=== PATIENT | female | born 1980 ===

== ENCOUNTER 2018-08-31 03:34 | Inpatient (IN) | payer MEDICAID ==
[2018-08-31] MEDS: ONDANSETRON 4 MG INJ IV (06:40)
[2018-08-31] MEDS: SOD CHLORIDE 0.9% 1,000 ML IV (06:40)
[2018-08-31] MEDS: morphine 4 MG/ML VIAL IV (06:40)
[2018-08-31 06:46] LABS: ADD MAN DIFF? NO
[2018-08-31 06:48] LABS: BASOPHILS % 0.4 % (0.0-2.0); EOSINOPHILS # 0.1 10^3/ul (0.0-0.5); EOSINOPHILS % 2.2 % (0.0-7.0); HEMATOCRIT 36.7 % (37.0-47.0); HEMOGLOBIN 11.5 g/dl (12.0-16.0); LYMPHOCYTES % 38.7 % (15.0-51.0); MEAN CORPUSCULAR HGB CONC 31.3 g/dl (32.0-37.0); MEAN CORPUSCULAR VOLUME 86.2 fl (82.0-101.0); MONOCYTE # 0.4 10^3/ul (0.3-0.9); MONOCYTES % 7.7 % (0.0-11.0); NEUTROPHIL # 2.6 10^3/ul (1.6-7.5); NEUTROPHILS % 50.8 % (39.0-77.0); PLATELET COUNT 240 10^3/UL (140-415); RED BLOOD COUNT 4.26 10^6/ul (4.20-5.40); RED CELL DISTRIBUTION WIDTH 13.8 % (11.5-14.5)
[2018-08-31 06:48] LABS: WHITE BLOOD COUNT 5.1 10^3/ul (4.8-10.8)
[2018-08-31 07:11] LABS: ALANINE AMINOTRANSFERASE 10 IU/L (13-69); ALBUMIN 3.7 g/dl (3.3-4.9); ALBUMIN/GLOBULIN RATIO 1.12; ALKALINE PHOSPHATASE 72 IU/L (42-121); ANION GAP 7 (5-13); ASPARTATE AMINO TRANSFERASE 13 IU/L (15-46); BILIRUBIN,INDIRECT 0.1 mg/dl (0-1.1); BILIRUBIN,TOTAL 0.1 mg/dl (0.2-1.3); BLOOD UREA NITROGEN 14 mg/dl (7-20); CALCIUM 9.1 mg/dl (8.4-10.2); CARBON DIOXIDE 26 mmol/L (21-31); CHLORIDE 109 mmol/L (97-110); CREATININE 0.77 mg/dl (0.44-1.00); Estimated GFR > 60 mL/min (>60); GLUCOSE 89 mg/dl (70-220); LIPASE 65 U/L (23-300); POTASSIUM 4.2 mmol/L (3.5-5.1); SODIUM 142 mmol/L (135-144)
[2018-08-31 07:37] LABS: ADD UMIC NO; UR ASCORBIC ACID 40 mg/dL (NEGATIVE); UR BILIRUBIN (Dip) NEGATIVE (NEGATIVE); UR BLOOD (Dip) NEGATIVE (NEGATIVE); UR CLARITY SLIGHTLY CLOUDY (CLEAR); UR COLOR YELLOW (YELLOW); UR GLUCOSE (Dip) NEGATIVE (NEGATIVE); UR KETONES (Dip) TRACE mg/dL (NEGATIVE); UR LEUKOCYTE ESTERASE (Dip) NEGATIVE Leu/ul (NEGATIVE); UR MUCUS MANY /HPF (NONE SEEN); UR NITRITE (Dip) NEGATIVE (NEGATIVE); UR RBC 4 /HPF (0-5); UR SPECIFIC GRAVITY (Dip) 1.032 (1.003-1.030); UR SQUAMOUS EPITHELIAL CELL FEW /HPF (FEW); UR TOTAL PROTEIN (Dip) NEGATIVE (NEGATIVE); UR UROBILINOGEN (Dip) 1+ mg/dL (NEGATIVE); UR WBC 2 /HPF (0-5)
[2018-08-31 10:09] LABS: LACTATE DEHYDROGENASE 264 IU/L (313-618)
[2018-08-31] MEDS ORDERED: ACETAMINOPHEN 325 MG TAB PO (10:30)
[2018-08-31] MEDS ORDERED: ONDANSETRON 4 MG INJ IV (10:30)
[2018-08-31 10:38] LABS: CANCER ANTIGEN 125 5.6 U/ml (0.0-35.0)
== END 2018-08-31 14:25 | disposition home or self-care (01) | DRG 392 ==
LOC: FTE 03:34 → MS1 10:31
DX: R19.00 Intra-abdominal and pelvic swelling, mass and lump, unspecified site (principal)
CPT/HCPCS: 36415; 74176; 76830; 76856; 80053; 81001; 81003; 81025; 82105; 83615; 83690; 84702; 85025; 86304; 96361; 96374; 96375; 99285-25